=== PATIENT | male | born 1960 | race Caucasian/White ===

== ENCOUNTER 2016-07-31 04:20 | Inpatient (IN) | payer SELFPAY ==
[~2016-07-31] VITALS: Ht 177.8 cm; Wt 81.9 kg
[2016-07-31] MEDS ORDERED: KETOROLAC TROMETH 30 MG/ML 1ML VIAL IV ONE (04:45)
[2016-07-31] MEDS ORDERED: HYDROmorphone HCL 2 MG/ML VL IV ONE (04:45)
[2016-07-31] MEDS ORDERED: ONDANSETRON HCL 4 MG/2 ML VIAL IV ONE (04:45)
[2016-07-31 05:00] LABS: Basophils # (auto) 0 uL; Basophils % (auto) 0.4 % (0.0-2.0); Eosinophils # (auto) 0.2 uL; Eosinophils % (auto) 1.9 % (0.0-7.0); Hematocrit 44.9 % (41.0-53.0); Hemoglobin 15.1 g/dL (13.5-17.5); Lymphocytes # (auto) 1.5 uL; Lymphocytes % (auto) 13.1 % (10.0-50.0); Mean Corpuscular Hemoglobin 29.4 pg (28.0-32.0); Mean Corpuscular Hgb Conc. 33.6 g/dL (32.0-36.0); Mean Corpuscular Volume 87.5 fL (80.0-100.0); Mean Platelet Volume 8.1 fL (7.4-10.4); Monocytes # (auto) 0.8 uL; Monocytes % (auto) 7.1 % (0.0-12.0); Neutrophils # (auto) 8.7 uL; Neutrophils % (auto) 77.5 % (37.0-80.0); Platelet Count (auto) 237 10^3/uL (140-450); Red Cell Distribution Width 13.4 % (11.6-16.0); White Blood Cell 11.2 10^3/uL (4.4-10.8)
[2016-07-31 05:16] LABS: Albumin 3.8 g/dL (3.4-5.0); BUN/Creatinine Ratio 8.2; Bilirubin, Total 0.4 mg/dL (0.2-1.0); Total Protein 7.2 g/dL (6.4-8.2)
[2016-07-31] MEDS ORDERED: SODIUM CHLORIDE 0.9% 1,000 ML IV SCH (06:48)
[2016-07-31] MEDS ORDERED: GASTROGRAFIN 120 ML SOL ONE (06:53)
[2016-07-31] MEDS ORDERED: ONDANSETRON HCL 4 MG/2 ML VIAL IV PRN (07:00)
[2016-07-31] MEDS: MORPHINE SULF INJ 2 MG/ML SYRINGE 1ML IV PRN ×3 (09:33→20:52)
[2016-07-31] MEDS: cefTRIAXone 1GM/50ML D5W 50 ML IV SCH (09:38)
[2016-07-31 10:02] VITALS: BP 123/73
[2016-07-31] MEDS ORDERED: ATOR10TA PO (10:29)
[2016-07-31] MEDS ORDERED: POTA1080 PO (10:29)
[2016-07-31] MEDS ORDERED: ALBUAER3 IN (10:29)
[2016-07-31] MEDS ORDERED: TAM04C PO (10:29)
[2016-07-31 13:00] VITALS: BP 127/91
[2016-07-31] MEDS: SOD CHL IV SCH (14:15)
[2016-07-31] MEDS: SODIUM BICARBONATE IV SCH (14:15)
[2016-07-31] MEDS: KCL IV SCH (14:15)
[2016-07-31 17:00] VITALS: BP 123/81
[2016-07-31 17:09] LABS: Urine Bilirubin Negative (Negative); Urine Color Yellow (Yellow); Urine Glucose Normal (Normal); Urine Ketone Negative (Negative); Urine Mucus FEW (None Seen); Urine Nitrite Negative (Negative); Urine RBC 98 /hpf (0 - 3); Urine Squamous Epithelial Cell FEW /hpf (<5); Urine Urobilinogen Normal (Negative); Urine pH 5.5 (5.0-8.0)
[2016-07-31 17:10] LABS: Urine Blood 2+ /uL (Negative)
[2016-07-31] MEDS: TAMSULOSIN HYDROCHLORIDE 0.4 MG CAP PO SCH (17:53)
[2016-07-31 20:00] VITALS: BP 115/78
[2016-07-31 21:30] VITALS: BP 115/78
[2016-08-01] VITALS (7 sets, daily range): BP systolic 104–115; BP diastolic 55–76
[2016-08-01] MEDS: SODIUM BICARBONATE IV SCH ×2 (03:36→04:55)
[2016-08-01] MEDS: KCL IV SCH ×2 (03:36→04:55)
[2016-08-01] MEDS: SOD CHL IV SCH ×2 (03:36→04:55)
[2016-08-01] MEDS: MORPHINE SULF INJ 2 MG/ML SYRINGE 1ML IV PRN ×3 (03:37→20:33)
[2016-08-01 06:32] LABS: Basophils # (auto) 0.1 uL; Basophils % (auto) 0.5 % (0.0-2.0); Eosinophils # (auto) 0.4 uL; Eosinophils % (auto) 3.9 % (0.0-7.0); Hematocrit 38.3 % (41.0-53.0); Hemoglobin 12.9 g/dL (13.5-17.5); Lymphocytes # (auto) 0.9 uL; Lymphocytes % (auto) 9.6 % (10.0-50.0); Mean Corpuscular Hemoglobin 29.7 pg (28.0-32.0); Mean Corpuscular Hgb Conc. 33.7 g/dL (32.0-36.0); Mean Corpuscular Volume 88.2 fL (80.0-100.0); Mean Platelet Volume 8.1 fL (7.4-10.4); Monocytes # (auto) 0.8 uL; Monocytes % (auto) 8.3 % (0.0-12.0); Neutrophils # (auto) 7.3 uL; Neutrophils % (auto) 77.7 % (37.0-80.0); Platelet Count (auto) 214 10^3/uL (140-450); Red Cell Distribution Width 13.2 % (11.6-16.0); White Blood Cell 9.4 10^3/uL (4.4-10.8)
[2016-08-01 06:54] LABS: Albumin 2.9 g/dL (3.4-5.0); BUN/Creatinine Ratio 7.2; Bilirubin, Total 0.5 mg/dL (0.2-1.0); Calcium 8.3 mg/dL (8.5-10.1); Magnesium 2.2 mg/dL (1.6-2.6); Potassium 4.6 mmol/L (3.5-5.1); Total Protein 5.4 g/dL (6.4-8.2)
[2016-08-01] MEDS ORDERED: SODIUM BICARBONATE 50ML VIAL 100 ML in SOD CHL 0.45% 1,000 ML IV SCH (10:45)
[2016-08-01] MEDS ORDERED: LIDOCAINE 2% JELLY 11ml (GLYDO) ONE (10:50)
[2016-08-01] MEDS ORDERED: fentaNYL CITRATE 100 MCG/2 ML VL ONE (11:13)
[2016-08-01] MEDS ORDERED: MIDAZOLAM HCL 1MG/1ML-2 ML VIAL ONE (11:13)
[2016-08-01] MEDS ORDERED: ceFAZolin 1GM/50ML D5W 100 ML IV ONE (11:14)
[2016-08-01] MEDS ORDERED: PROPOFOL 10 MG/ML 20 ML IV ONE (11:14)
[2016-08-01] MEDS ORDERED: ONDANSETRON HCL 4 MG/2 ML VIAL ONE (11:14)
[2016-08-01 11:33] LABS: INR 0.97 (0.9-1.15); Partial Thromboplastin Time 27.7 sec (22.64-33.71); Prothrombin Time 10.5 sec (9.37-12.3)
[2016-08-01] MEDS: cefTRIAXone 1GM/50ML D5W 50 ML IV SCH (13:23)
[2016-08-01] MEDS: SODIUM BICARBONATE 50ML VIAL 100 ML in SOD CHL 0.45% 1,000 ML IV SCH ×2 (13:24→23:23)
[2016-08-01] MEDS: TAMSULOSIN HYDROCHLORIDE 0.4 MG CAP PO SCH (17:27)
[2016-08-02] MEDS: MORPHINE SULF INJ 2 MG/ML SYRINGE 1ML IV PRN ×3 (03:26→21:46)
[2016-08-02 05:08] VITALS: BP 126/80
[2016-08-02 07:08] LABS: Calcium 8.3 mg/dL (8.5-10.1); Potassium 4.7 mmol/L (3.5-5.1)
[2016-08-02 07:11] LABS: BUN/Creatinine Ratio 7.5
[2016-08-02 09:00] VITALS: BP 114/72
[2016-08-02] MEDS: cefTRIAXone 1GM/50ML D5W 50 ML IV SCH (09:20)
[2016-08-02] MEDS ORDERED: HYDROcodone-ACET 5/325MG TAB PO PRN (12:00)
[2016-08-02 13:00] VITALS: BP 110/74
[2016-08-02 16:59] VITALS: BP 104/63
[2016-08-02 20:00] VITALS: BP 119/75
[2016-08-02] MEDS: TAMSULOSIN HYDROCHLORIDE 0.4 MG CAP PO SCH (20:20)
[2016-08-02] MEDS: SODIUM BICARBONATE 50ML VIAL 100 ML in SOD CHL 0.45% 1,000 ML IV SCH (21:28)
[2016-08-02 21:51] VITALS: BP 119/75
[2016-08-03] MEDS: SODIUM BICARBONATE 50ML VIAL 100 ML in SOD CHL 0.45% 1,000 ML IV SCH (03:15)
[2016-08-03 04:57] VITALS: BP 138/83
[2016-08-03] MEDS: MORPHINE SULF INJ 2 MG/ML SYRINGE 1ML IV PRN (05:26)
[2016-08-03 06:13] LABS: Basophils # (auto) 0 uL; Basophils % (auto) 0.8 % (0.0-2.0); Eosinophils # (auto) 0.6 uL; Eosinophils % (auto) 9.8 % (0.0-7.0); Hematocrit 39.7 % (41.0-53.0); Hemoglobin 13.5 g/dL (13.5-17.5); Lymphocytes # (auto) 1.5 uL; Lymphocytes % (auto) 24.9 % (10.0-50.0); Mean Corpuscular Hgb Conc. 34.1 g/dL (32.0-36.0); Monocytes # (auto) 0.6 uL; Monocytes % (auto) 10.4 % (0.0-12.0); Neutrophils # (auto) 3.2 uL; Neutrophils % (auto) 54.1 % (37.0-80.0); Platelet Count (auto) 212 10^3/uL (140-450); Red Cell Distribution Width 12.7 % (11.6-16.0); White Blood Cell 5.8 10^3/uL (4.4-10.8)
[2016-08-03 06:23] LABS: Calcium 8.4 mg/dL (8.5-10.1); Potassium 4.4 mmol/L (3.5-5.1)
[2016-08-03 07:45] VITALS: BP 127/77
[2016-08-03] MEDS: cefTRIAXone 1GM/50ML D5W 50 ML IV SCH (08:56)
[2016-08-03] MEDS ORDERED: LEVO500T3 PO (11:32)
[2016-08-03 12:07] VITALS: BP 116/72
[2016-08-03 14:19] VITALS: BP 116/72
== END 2016-08-03 16:18 | disposition home or self-care (01) | DRG 694 ==
LOC: ER 04:25 → EAST 04:26
PROVIDERS: ADMIT Internal Medicine; ATTEND Internal Medicine
PROC: 0T778DZ Dilation of Left Ureter with Intraluminal Device, Via Natural or Artificial Opening Endoscopic (ICD-10-PCS; principal; 2016-07-31)
DX: N13.2 Hydronephrosis with renal and ureteral calculous obstruction (principal); K56.60 Unspecified intestinal obstruction; I12.0 Hypertensive chronic kidney disease with stage 5 chronic kidney disease or end stage renal disease; N13.8 Other obstructive and reflux uropathy; D72.829 Elevated white blood cell count, unspecified; N17.0 Acute kidney failure with tubular necrosis; D64.9 Anemia, unspecified; N18.5 Chronic kidney disease, stage 5; N12 Tubulo-interstitial nephritis, not specified as acute or chronic; E78.5 Hyperlipidemia, unspecified; N17.9 Acute kidney failure, unspecified; Z82.49 Family history of ischemic heart disease and other diseases of the circulatory system; Z90.5 Acquired absence of kidney
CPT/HCPCS: 36415; 71010; 74000; 74176; 74250; 76000; 80048; 80053; 80061; 81001; 83735; 85025; 85610; 85730; 87086; 96374; 96375; J0690; J0696; J1885; J2250; J2405; J2704

== ENCOUNTER 2016-10-08 20:07 | Inpatient (IN) | payer SELFPAY ==
[~2016-10-08] VITALS: Ht 177.8 cm; Wt 66.0 kg
[~2016-10-08 20:07] MED LIST: ALBUAER3 IN; ATOR10TA PO; LEVO500T21 PO; POTA1080 PO; TAM04C PO
[2016-10-08] MEDS ORDERED: SODIUM CHLORIDE 0.9% 3,000 ML IV ONE (21:00)
[2016-10-08 21:41] LABS: Basophils # (auto) 0 uL; Basophils % (auto) 0.1 % (0.0-2.0); CONDITION Y; Eosinophils # (auto) 0 uL; Hematocrit 39.1 % (41.0-53.0); Hemoglobin 13.5 g/dL (13.5-17.5); Lymphocytes # (auto) 0.4 uL; Lymphocytes % (auto) 2.5 % (10.0-50.0); Mean Corpuscular Hgb Conc. 34.5 g/dL (32.0-36.0); Mean Platelet Volume 8.7 fL (7.4-10.4); Monocytes # (auto) 1.2 uL; Monocytes % (auto) 7.2 % (0.0-12.0); Neutrophils % (auto) 90.2 % (37.0-80.0); Platelet Count (auto) 226 10^3/uL (140-450); Red Cell Distribution Width 13.3 % (11.6-16.0); SUSPECT Y; White Blood Cell 16.7 10^3/uL (4.4-10.8)
[2016-10-08 22:05] LABS: Alkaline Phosphatase 89 U/L (45-117); Anion Gap 9 (5-15); Aspartate Aminotransferase 18 U/L (15-37); Bilirubin, Total 0.7 mg/dL (0.2-1.0); Blood Urea Nitrogen 25 mg/dL (7-18); Calcium 8.2 mg/dL (8.5-10.1); Carbon Dioxide 26 mmol/L (21-32); Chloride 95 mmol/L (98-107); GFR African American 47 mL/min; GFR Non-African American 39 mL/min; Glucose 127 mg/dL (74-106); Magnesium 1.9 mg/dL (1.6-2.6); Sodium 130 mmol/L (136-145); Total Protein 6.4 g/dL (6.4-8.2)
[2016-10-08 22:08] LABS: INR 0.98 (0.9-1.15); Partial Thromboplastin Time 31.2 sec (22.64-33.71); Prothrombin Time 10.7 sec (9.37-12.3)
[2016-10-08 22:44] LABS: Urine Bilirubin Negative (Negative); Urine Color Yellow (Yellow); Urine Glucose Normal (Normal); Urine Ketone TRACE (Negative); Urine RBC 34 /hpf (0 - 3); Urine Squamous Epithelial Cell FEW /hpf (<5); Urine Urobilinogen Normal (Negative); Urine pH 7.5 (5.0-8.0)
[2016-10-08 22:47] LABS: B-Type Natriuretic Peptide < 5.0 pg/mL (0-100); Temperature: 23.1 C (20.0-25.0)
[2016-10-08 22:49] LABS: Urine Blood 1+ /uL (Negative); Urine Nitrite POSITIVE (Negative)
[2016-10-08] MEDS ORDERED: MORPHINE SULFATE 4 MG/ML SYRG IV ONE (23:00)
[2016-10-08] MEDS ORDERED: PIPERACILLIN-TAZOB 3.375GM 100 ML IV ONE (23:00)
[2016-10-08] MEDS ORDERED: ONDANSETRON HCL 4 MG/2 ML VIAL IV ONE (23:00)
[2016-10-08] MEDS ORDERED: VANCOMYCIN 1GM/250ML D5W 250 ML IV ONE (23:00)
[2016-10-08 23:46] LABS: Fibrinogen 550.8 mg/dL (177-375)
[2016-10-09] MEDS ORDERED: ACETAMINOPHEN 325 MG TAB PO ONE (02:30)
[2016-10-09] MEDS ORDERED: ONDANSETRON HCL 4 MG/2 ML VIAL IV ONE (03:00)
[2016-10-09] MEDS ORDERED: MORPHINE SULFATE 4 MG/ML SYRG IV ONE (03:00)
[2016-10-09] MEDS ORDERED: NITROGLYCERIN 0.4 MG SL TAB SL PRN (04:30)
[2016-10-09] MEDS ORDERED: ONDANSETRON HCL 4 MG/2 ML VIAL IV PRN (04:30)
[2016-10-09] MEDS ORDERED: ACETAMINOPHEN 325 MG TAB PO PRN (04:30)
[2016-10-09] MEDS ORDERED: MORPHINE SULF INJ 2 MG/ML SYRINGE 1ML IV PRN ×2 (04:30)
[2016-10-09] MEDS ORDERED: HYDROmorphone HCL 2 MG/ML VL IV PRN (04:30)
[2016-10-09] MEDS: SODIUM CHLORIDE 0.9% 1,000 ML IV SCH ×2 (04:49→15:50)
[2016-10-09 05:45] VITALS: BP 89/51
[2016-10-09] MEDS: PIPERACILLIN-TAZOB 3.375GM 100 ML IV SCH ×4 (06:18→23:38)
[2016-10-09 09:00] VITALS: BP 68/49
[2016-10-09] MEDS ORDERED: VANCOMYCIN 1GM/250ML D5W 250 ML IV SCH (09:00)
[2016-10-09 09:09] LABS: Albumin 2.5 g/dL (3.4-5.0); Calcium 7.9 mg/dL (8.5-10.1); Potassium 4.5 mmol/L (3.5-5.1)
[2016-10-09 09:11] LABS: BUN/Creatinine Ratio 11.8
[2016-10-09 09:13] LABS: Total Protein 5.8 g/dL (6.4-8.2)
[2016-10-09] MEDS ORDERED: LIDOCAINE HCL 2% TOP JELLY 5ML TOP ONE (09:30)
[2016-10-09] MEDS ORDERED: VANCOMYCIN PER PHARMACY 0 MG IV SCH (10:00)
[2016-10-09] MEDS: PANTOPRAZOLE SODIUM 40 MG/10 ML VIAL IV SCH (10:49)
[2016-10-09] MEDS ORDERED: LIDOCAINE 2% JELLY 11ml (GLYDO) UR ONE (11:45)
[2016-10-09 13:00] VITALS: BP 78/48
[2016-10-09 17:00] VITALS: BP 79/56
[2016-10-09] MEDS ORDERED: SODIUM CHLORIDE 0.9% 1,000 ML IV ONE (17:30)
[2016-10-09] MEDS: HYDROcodone-ACET 5/325MG TAB PO PRN (17:40)
[2016-10-09 21:58] VITALS: BP 86/50
[2016-10-09 22:00] VITALS: BP 79/53
[2016-10-10 00:17] VITALS: BP 92/60
[2016-10-10 05:00] VITALS: BP 92/61
[2016-10-10] MEDS: SODIUM CHLORIDE 0.9% 1,000 ML IV SCH ×3 (05:09→18:42)
[2016-10-10] MEDS: PIPERACILLIN-TAZOB 3.375GM 100 ML IV SCH ×4 (05:10→23:43)
[2016-10-10 06:22] LABS: Basophils # (auto) 0 uL; Basophils % (auto) 0.2 % (0.0-2.0); CONDITION AutoValidated; Eosinophils # (auto) 0 uL; Eosinophils % (auto) 0.4 % (0.0-7.0); Hematocrit 32.3 % (41.0-53.0); Hemoglobin 11.1 g/dL (13.5-17.5); Lymphocytes # (auto) 0.6 uL; Lymphocytes % (auto) 5.2 % (10.0-50.0); Mean Corpuscular Hemoglobin 29.9 pg (28.0-32.0); Mean Corpuscular Hgb Conc. 34.2 g/dL (32.0-36.0); Mean Corpuscular Volume 87.6 fL (80.0-100.0); Mean Platelet Volume 8.7 fL (7.4-10.4); Monocytes # (auto) 0.6 uL; Monocytes % (auto) 4.8 % (0.0-12.0); Neutrophils # (auto) 10.4 uL; Neutrophils % (auto) 89.4 % (37.0-80.0); Platelet Count (auto) 177 10^3/uL (140-450); Red Cell Distribution Width 13.3 % (11.6-16.0); White Blood Cell 11.6 10^3/uL (4.4-10.8)
[2016-10-10 06:43] LABS: Calcium 7.5 mg/dL (8.5-10.1); Potassium 4.5 mmol/L (3.5-5.1)
[2016-10-10 06:46] LABS: Bilirubin, Total 0.6 mg/dL (0.2-1.0); Total Protein 5.4 g/dL (6.4-8.2)
[2016-10-10 09:00] VITALS: BP 90/63
[2016-10-10] MEDS: PANTOPRAZOLE SODIUM 40 MG/10 ML VIAL IV SCH (09:49)
[2016-10-10 13:00] VITALS: BP 106/61
[2016-10-10 17:28] VITALS: BP 101/57
[2016-10-10] MEDS: HYDROcodone-ACET 5/325MG TAB PO PRN (19:17)
[2016-10-10 21:38] VITALS: BP 112/71
[2016-10-11] MEDS: SODIUM CHLORIDE 0.9% 1,000 ML IV SCH ×4 (03:30→23:13)
[2016-10-11 05:00] VITALS: BP 110/69
[2016-10-11] MEDS: PIPERACILLIN-TAZOB 3.375GM 100 ML IV SCH ×2 (05:24→12:06)
[2016-10-11 05:41] LABS: Basophils # (auto) 0 uL; Basophils % (auto) 0.5 % (0.0-2.0); CONDITION AutoValidated; Eosinophils # (auto) 0.2 uL; Eosinophils % (auto) 2.2 % (0.0-7.0); Hematocrit 34.5 % (41.0-53.0); Hemoglobin 11.6 g/dL (13.5-17.5); Lymphocytes # (auto) 0.7 uL; Lymphocytes % (auto) 8.4 % (10.0-50.0); Mean Corpuscular Hemoglobin 29.7 pg (28.0-32.0); Mean Corpuscular Hgb Conc. 33.5 g/dL (32.0-36.0); Mean Corpuscular Volume 88.7 fL (80.0-100.0); Mean Platelet Volume 9.8 fL (7.4-10.4); Monocytes # (auto) 0.7 uL; Monocytes % (auto) 8.6 % (0.0-12.0); Neutrophils # (auto) 6.6 uL; Neutrophils % (auto) 80.3 % (37.0-80.0); Platelet Count (auto) 204 10^3/uL (140-450); Red Cell Distribution Width 14.2 % (11.6-16.0); White Blood Cell 8.2 10^3/uL (4.4-10.8)
[2016-10-11 05:51] LABS: BUN/Creatinine Ratio 10.9; Calcium 7.7 mg/dL (8.5-10.1); Potassium 4.7 mmol/L (3.5-5.1)
[2016-10-11 09:30] VITALS: BP 109/74
[2016-10-11] MEDS: PANTOPRAZOLE SODIUM 40 MG/10 ML VIAL IV SCH (09:39)
[2016-10-11] MEDS ORDERED: cefTRIAXone 1GM/50ML D5W 50 ML IV ONE (12:30)
[2016-10-11 13:03] VITALS: BP 99/72
[2016-10-11 17:01] VITALS: BP 127/77
[2016-10-11 20:00] VITALS: BP 105/64
[2016-10-11 21:54] VITALS: BP 105/64
[2016-10-12 05:42] LABS: Basophils # (auto) 0.1 uL; Basophils % (auto) 0.7 % (0.0-2.0); CONDITION AutoValidated; Eosinophils # (auto) 0.3 uL; Hemoglobin 11.9 g/dL (13.5-17.5); Lymphocytes # (auto) 1.1 uL; Lymphocytes % (auto) 12.9 % (10.0-50.0); Mean Corpuscular Hemoglobin 29.5 pg (28.0-32.0); Mean Corpuscular Hgb Conc. 33.2 g/dL (32.0-36.0); Mean Platelet Volume 8.8 fL (7.4-10.4); Monocytes # (auto) 0.8 uL; Neutrophils % (auto) 72.4 % (37.0-80.0); Platelet Count (auto) 257 10^3/uL (140-450); Red Cell Distribution Width 13.7 % (11.6-16.0); White Blood Cell 8.3 10^3/uL (4.4-10.8)
[2016-10-12 05:52] VITALS: BP 114/69
[2016-10-12 05:58] LABS: Calcium 8.4 mg/dL (8.5-10.1); Potassium 4.6 mmol/L (3.5-5.1)
[2016-10-12 06:01] LABS: BUN/Creatinine Ratio 11.1
[2016-10-12] MEDS ORDERED: CIPR-173 PO (09:00)
[2016-10-12] MEDS ORDERED: cefTRIAXone 1GM/50ML D5W 50 ML IV SCH (09:00)
[2016-10-12] MEDS ORDERED: AMOX-263 PO (09:02)
[2016-10-12 09:12] VITALS: BP 114/74
[2016-10-12] MEDS: PANTOPRAZOLE SODIUM 40 MG/10 ML VIAL IV SCH (09:33)
[2016-10-12] MEDS: SODIUM CHLORIDE 0.9% 1,000 ML IV SCH (09:33)
[2016-10-12 13:36] VITALS: BP 125/80
[2016-10-12 15:36] VITALS: BP 125/80
== END 2016-10-12 16:27 | disposition home or self-care (01) | DRG 698 ==
LOC: ER 20:19 → TELE 20:21 → TELE-CENTR 10-09 05:45 → CENTRAL 10-11 12:39
PROVIDERS: ADMIT Internal Medicine; ATTEND Internal Medicine
DX: T83.122A Displacement of indwelling ureteral stent, initial encounter (principal); A41.3 Sepsis due to Hemophilus influenzae; J98.11 Atelectasis; E44.0 Moderate protein-calorie malnutrition; N17.9 Acute kidney failure, unspecified; E87.1 Hypo-osmolality and hyponatremia; N13.6 Pyonephrosis; N39.0 Urinary tract infection, site not specified; E11.22 Type 2 diabetes mellitus with diabetic chronic kidney disease; N18.3 Chronic kidney disease, stage 3 (moderate); E86.0 Dehydration; Z82.49 Family history of ischemic heart disease and other diseases of the circulatory system; Z87.442 Personal history of urinary calculi; Z68.20 Body mass index [BMI] 20.0-20.9, adult
CPT/HCPCS: 36415; 71010; 74176; 80048; 80053; 80202; 81001; 82553; 82962; 83605; 83735; 83874; 83880; 84484; 85025; 85384; 85610; 85730; 87040; 87077; 87086; 93005; 96361; 96365; 96367; 96375; 96376; C9113; J0696; J2405; J2543

== ENCOUNTER 2017-06-11 20:10 | Inpatient (IN) | payer MEDICAID ==
[~2017-06-11] VITALS: Ht 182.9 cm; Wt 80.5 kg
[~2017-06-11 20:10] MED LIST changes: +AMOX-263 PO; +CIPR-173 PO; -LEVO500T21 PO; -POTA1080 PO
[2017-06-11] MEDS ORDERED: ONDANSETRON HCL 4 MG/2 ML VIAL IV ONE (20:45)
[2017-06-11] MEDS ORDERED: MORPHINE SULFATE 4 MG/ML SYR/VIAL IV ONE (20:45)
[2017-06-11 20:57] LABS: Basophils # (auto) 0.1 uL; Basophils % (auto) 0.9 % (0.0-2.0); Eosinophils # (auto) 0 uL; Eosinophils % (auto) 0.3 % (0.0-7.0); Hematocrit 44.6 % (41.0-53.0); Lymphocytes # (auto) 0.8 uL; Lymphocytes % (auto) 5.9 % (10.0-50.0); Mean Corpuscular Hemoglobin 29.4 pg (28.0-32.0); Mean Corpuscular Hgb Conc. 33.6 g/dL (32.0-36.0); Mean Corpuscular Volume 87.5 fL (80.0-100.0); Monocytes # (auto) 1.1 uL; Monocytes % (auto) 8.6 % (0.0-12.0); Neutrophils # (auto) 10.8 uL; Neutrophils % (auto) 84.3 % (37.0-80.0); Nucleated Red Blood Cells % 0.4 %; Platelet Count (auto) 224 10^3/uL (140-450); Red Blood Cells 5.09 10^6/uL (4.5-5.90); Red Cell Distribution Width 13.6 % (11.8-14.3); White Blood Cell 12.8 10^3/uL (4.4-10.8)
[2017-06-11 21:02] LABS: Urine Bacteria FEW /hpf (None Seen); Urine Blood 2+ /uL (Negative); Urine Mucus FEW (None Seen); Urine Specific Gravity 1.014 (1.001-1.035); Urine WBC 532 /hpf (0 - 3); Urine WBC Clumps PRESENT /hpf (None Seen)
[2017-06-11 21:14] LABS: Albumin 3.5 g/dL (3.4-5.0); BUN/Creatinine Ratio 14.8; Potassium 4.4 mmol/L (3.5-5.1)
[2017-06-11 21:16] LABS: Bilirubin, Total 0.5 mg/dL (0.2-1.0); Total Protein 7.7 g/dL (6.4-8.2)
[2017-06-11] MEDS ORDERED: cefTRIAXone 1GM/10ml IVPUSH 10 ML IV ONE (21:45)
[2017-06-11] MEDS ORDERED: TAMSULOSIN HYDROCHLORIDE 0.4 MG CAP PO ONE (22:00)
[2017-06-11] MEDS ORDERED: SODIUM CHLORIDE 0.9% 500 ML IV ONE (22:00)
[2017-06-11] MEDS ORDERED: ONDANSETRON HCL 4 MG/2 ML VIAL IV PRN (22:00)
[2017-06-11] MEDS: SODIUM CHLORIDE 0.9% 1,000 ML IV SCH (22:40)
[2017-06-11] MEDS: FAMOTIDINE 20 MG TAB PO SCH (22:40)
[2017-06-11] MEDS: MORPHINE SULFATE 4 MG/ML SYR/VIAL IV PRN (22:46)
[2017-06-11 23:05] VITALS: BP 121/74
[2017-06-12] VITALS (8 sets, daily range): BP systolic 88–130; BP diastolic 55–92
[2017-06-12] MEDS: ACETAMINOPHEN 325 MG TAB PO PRN ×3 (00:06→18:36)
[2017-06-12] MEDS: HYDROcodone-ACET 5/325MG TAB PO PRN ×4 (02:00→22:53)
[2017-06-12 06:12] LABS: Basophils # (auto) 0.1 uL; Basophils % (auto) 0.5 % (0.0-2.0); Eosinophils # (auto) 0 uL; Eosinophils % (auto) 0.3 % (0.0-7.0); Hematocrit 39.8 % (41.0-53.0); Hemoglobin 13.5 g/dL (13.5-17.5); Lymphocytes # (auto) 0.6 uL; Lymphocytes % (auto) 5.1 % (10.0-50.0); Mean Corpuscular Hemoglobin 29.7 pg (28.0-32.0); Mean Corpuscular Volume 87.3 fL (80.0-100.0); Monocytes # (auto) 1.1 uL; Monocytes % (auto) 9.8 % (0.0-12.0); Neutrophils # (auto) 9.3 uL; Neutrophils % (auto) 84.3 % (37.0-80.0); Nucleated Red Blood Cells % 0.1 %; Platelet Count (auto) 176 10^3/uL (140-450); Red Blood Cells 4.56 10^6/uL (4.5-5.90); Red Cell Distribution Width 13.5 % (11.8-14.3)
[2017-06-12 06:33] LABS: Calcium 7.9 mg/dL (8.5-10.1); Potassium 3.9 mmol/L (3.5-5.1)
[2017-06-12 06:36] LABS: BUN/Creatinine Ratio 14.4
[2017-06-12 06:38] LABS: Bilirubin, Total 0.4 mg/dL (0.2-1.0); Total Protein 6.6 g/dL (6.4-8.2)
[2017-06-12] MEDS: MORPHINE SULFATE 4 MG/ML SYR/VIAL IV PRN ×2 (07:32→20:05)
[2017-06-12] MEDS ORDERED: cefTRIAXone 1GM/10ml IVPUSH 10 ML IV SCH (09:00)
[2017-06-12 09:01] LABS: INR 0.93 (0.9-1.15); Partial Thromboplastin Time 32.1 sec (22.64-33.71); Prothrombin Time 10.1 sec (9.37-12.3)
[2017-06-12] MEDS: FAMOTIDINE 20 MG TAB PO SCH ×2 (09:45→22:10)
[2017-06-12] MEDS ORDERED: LEVOFLOXACIN 500MG 100 ML IV SCH (10:00)
[2017-06-12] MEDS ORDERED: TIOP100T PO (10:01)
[2017-06-12] MEDS ORDERED: KETOROLAC TROMETH 30 MG/ML 1ML VIAL IV ONE (10:30)
[2017-06-12] MEDS: SODIUM CHLORIDE 0.9% 1,000 ML IV SCH ×2 (11:33→20:00)
[2017-06-12] MEDS ORDERED: IODIXANOL 320MG/ML 100ML BTL IV ONE (12:23)
[2017-06-12] MEDS ORDERED: LIDOCAINE 2%HCL (LOCAL ANESTH.) INJ 20ML MDV ONE ×3 (12:23→13:27)
[2017-06-12] MEDS ORDERED: MIDAZOLAM HCL 1MG/1ML-2 ML VIAL ONE (12:57)
[2017-06-12] MEDS ORDERED: fentaNYL CITRATE 100 MCG/2 ML VL ONE (12:59)
[2017-06-12] MEDS ORDERED: SODIUM CHLORIDE 0.9% 1,000 ML IV SCH (14:15)
[2017-06-12] MEDS ORDERED: MEPERIDINE HCL (25 MG/ML) 1ML VIAL IM ONE (15:15)
[2017-06-12] MEDS ORDERED: MEPERIDINE HCL (25 MG/ML) 1ML VIAL ONE (15:19)
[2017-06-12] MEDS ORDERED: SODIUM CHLORIDE 0.9% 1,000 ML IV ONE (18:15)
[2017-06-12] MEDS: LINEZOLID 600MG/300ML 300 ML IV SCH ×2 (18:15→22:00)
[2017-06-12] MEDS ORDERED: PIPERACILLIN-TAZOB 2.25GM 50 ML IV ONE (18:15)
[2017-06-12 20:35] LABS: Basophils # (auto) 0.1 uL; Basophils % (auto) 0.6 % (0.0-2.0); Eosinophils # (auto) 0 uL; Hematocrit 37.2 % (41.0-53.0); Hemoglobin 12.5 g/dL (13.5-17.5); Lymphocytes # (auto) 0.1 uL; Mean Corpuscular Hemoglobin 29.3 pg (28.0-32.0); Mean Corpuscular Hgb Conc. 33.7 g/dL (32.0-36.0); Monocytes # (auto) 0.6 uL; Neutrophils % (auto) 93.4 % (37.0-80.0); Red Blood Cells 4.28 10^6/uL (4.5-5.90); Red Cell Distribution Width 13.4 % (11.8-14.3); White Blood Cell 12.8 10^3/uL (4.4-10.8)
[2017-06-12 20:40] LABS: Platelet Count (auto) 139 10^3/uL (140-450)
[2017-06-12] MEDS ORDERED: SODIUM CHLORIDE 0.9% 500 ML IV ONE (23:00)
[2017-06-13] VITALS: BP 90/62
[2017-06-13] MEDS ORDERED: PIPERACILLIN-TAZOB 2.25GM 50 ML IV SCH
[2017-06-13] MEDS: SODIUM CHLORIDE 0.9% 1,000 ML IV SCH ×3 (00:55→14:21)
[2017-06-13 01:27] LABS: Hematocrit 36.2 % (41.0-53.0); Hemoglobin 12.2 g/dL (13.5-17.5)
[2017-06-13 05:14] LABS: Basophils # (auto) 0 uL; Basophils % (auto) 0.2 % (0.0-2.0); Eosinophils # (auto) 0 uL; Eosinophils % (auto) 0.2 % (0.0-7.0); Hematocrit 34.1 % (41.0-53.0); Hemoglobin 11.5 g/dL (13.5-17.5); Lymphocytes # (auto) 0.2 uL; Lymphocytes % (auto) 1.5 % (10.0-50.0); Mean Corpuscular Hemoglobin 29.8 pg (28.0-32.0); Mean Corpuscular Hgb Conc. 33.9 g/dL (32.0-36.0); Mean Corpuscular Volume 88.1 fL (80.0-100.0); Monocytes # (auto) 0.7 uL; Monocytes % (auto) 4.4 % (0.0-12.0); Neutrophils % (auto) 93.7 % (37.0-80.0); Platelet Count (auto) 146 10^3/uL (140-450); Red Blood Cells 3.87 10^6/uL (4.5-5.90); Red Cell Distribution Width 13.4 % (11.8-14.3)
[2017-06-13 05:32] LABS: BUN/Creatinine Ratio 12.7; Calcium 7.2 mg/dL (8.5-10.1); Potassium 4.9 mmol/L (3.5-5.1)
[2017-06-13 06:14] VITALS: BP 103/62
[2017-06-13 08:00] VITALS: BP 135/73
[2017-06-13] MEDS: HYDROcodone-ACET 5/325MG TAB PO PRN ×2 (08:59→21:05)
[2017-06-13] MEDS ORDERED: TAMSULOSIN HYDROCHLORIDE 0.4 MG CAP PO ONE (11:00)
[2017-06-13] MEDS ORDERED: SODIUM CHLORIDE 0.9% 500 ML IV ONE (11:00)
[2017-06-13] MEDS ORDERED: cefTRIAXone 1GM/10ml IVPUSH 10 ML IV ONE (11:00)
[2017-06-13] MEDS: FAMOTIDINE 20 MG TAB PO SCH ×2 (11:37→22:21)
[2017-06-13] MEDS: LINEZOLID 600MG/300ML 300 ML IV SCH ×2 (11:37→22:20)
[2017-06-13 11:51] VITALS: BP 108/56
[2017-06-13] MEDS: ACETAMINOPHEN 325 MG TAB PO PRN (12:05)
[2017-06-13] MEDS: MORPHINE SULFATE 4 MG/ML SYR/VIAL IV PRN ×2 (13:12→22:25)
[2017-06-13 15:50] VITALS: BP 122/50
[2017-06-13] MEDS: TAMSULOSIN HYDROCHLORIDE 0.4 MG CAP PO SCH (18:20)
[2017-06-13 19:50] VITALS: BP 99/66
[2017-06-14] VITALS (7 sets, daily range): BP systolic 104–120; BP diastolic 63–77
[2017-06-14] MEDS: ACETAMINOPHEN 325 MG TAB PO PRN (00:08)
[2017-06-14] MEDS: SODIUM CHLORIDE 0.9% 1,000 ML IV SCH ×4 (01:00→17:17)
[2017-06-14 05:31] LABS: Basophils # (auto) 0 uL; Basophils % (auto) 0.5 % (0.0-2.0); Eosinophils # (auto) 0.1 uL; Hematocrit 33.6 % (41.0-53.0); Hemoglobin 11.6 g/dL (13.5-17.5); Lymphocytes # (auto) 0.4 uL; Lymphocytes % (auto) 5.5 % (10.0-50.0); Mean Corpuscular Hemoglobin 30.4 pg (28.0-32.0); Mean Corpuscular Hgb Conc. 34.6 g/dL (32.0-36.0); Mean Corpuscular Volume 87.8 fL (80.0-100.0); Monocytes # (auto) 0.6 uL; Monocytes % (auto) 8.4 % (0.0-12.0); Neutrophils # (auto) 6.2 uL; Neutrophils % (auto) 83.6 % (37.0-80.0); Nucleated Red Blood Cells % 0.1 %; Platelet Count (auto) 145 10^3/uL (140-450); Red Blood Cells 3.82 10^6/uL (4.5-5.90); Red Cell Distribution Width 13.2 % (11.8-14.3); White Blood Cell 7.4 10^3/uL (4.4-10.8)
[2017-06-14 05:47] LABS: Albumin 2.1 g/dL (3.4-5.0); BUN/Creatinine Ratio 10.7; Bilirubin, Total 0.4 mg/dL (0.2-1.0); Calcium 7.5 mg/dL (8.5-10.1); Potassium 4.3 mmol/L (3.5-5.1); Total Protein 5.9 g/dL (6.4-8.2)
[2017-06-14] MEDS: cefTRIAXone 1GM/10ml IVPUSH 10 ML IV SCH (09:29)
[2017-06-14] MEDS: FAMOTIDINE 20 MG TAB PO SCH ×2 (09:29→21:20)
[2017-06-14] MEDS: LINEZOLID 600MG/300ML 300 ML IV SCH ×2 (09:29→21:20)
[2017-06-14] MEDS: MORPHINE SULFATE 4 MG/ML SYR/VIAL IV PRN ×2 (12:51→19:54)
[2017-06-14] MEDS: TAMSULOSIN HYDROCHLORIDE 0.4 MG CAP PO SCH (18:10)
[2017-06-14] MEDS: HYDROcodone-ACET 5/325MG TAB PO PRN (18:10)
[2017-06-14] MEDS: TEMAZEPAM 15 MG CAP PO PRN (23:11)
[2017-06-15] MEDS: SODIUM CHLORIDE 0.9% 1,000 ML IV SCH ×4 (02:33→16:58)
[2017-06-15 05:15] VITALS: BP 122/79
[2017-06-15 06:47] LABS: Basophils # (auto) 0.1 uL; Basophils % (auto) 0.8 % (0.0-2.0); Eosinophils # (auto) 0.3 uL; Eosinophils % (auto) 4.8 % (0.0-7.0); Hematocrit 36.2 % (41.0-53.0); Hemoglobin 12.3 g/dL (13.5-17.5); Lymphocytes # (auto) 0.6 uL; Mean Corpuscular Hemoglobin 29.5 pg (28.0-32.0); Mean Corpuscular Volume 86.8 fL (80.0-100.0); Monocytes # (auto) 0.7 uL; Monocytes % (auto) 10.8 % (0.0-12.0); Neutrophils % (auto) 74.6 % (37.0-80.0); Platelet Count (auto) 189 10^3/uL (140-450); Red Blood Cells 4.17 10^6/uL (4.5-5.90); Red Cell Distribution Width 13.4 % (11.8-14.3); White Blood Cell 6.7 10^3/uL (4.4-10.8)
[2017-06-15] MEDS: cefTRIAXone 1GM/10ml IVPUSH 10 ML IV SCH (08:43)
[2017-06-15] MEDS: LINEZOLID 600MG/300ML 300 ML IV SCH ×2 (08:43→21:23)
[2017-06-15] MEDS: FAMOTIDINE 20 MG TAB PO SCH ×2 (08:44→21:23)
[2017-06-15] MEDS: MORPHINE SULFATE 4 MG/ML SYR/VIAL IV PRN ×2 (08:46→21:44)
[2017-06-15 09:00] VITALS: BP 117/85
[2017-06-15 13:00] VITALS: BP 107/57
[2017-06-15 17:00] VITALS: BP 108/65
[2017-06-15] MEDS: TAMSULOSIN HYDROCHLORIDE 0.4 MG CAP PO SCH (17:49)
[2017-06-15 21:56] VITALS: BP 129/77
[2017-06-16] MEDS: SODIUM CHLORIDE 0.9% 1,000 ML IV SCH ×4 (02:15→21:55)
[2017-06-16 05:00] VITALS: BP 126/77
[2017-06-16] MEDS: MORPHINE SULFATE 4 MG/ML SYR/VIAL IV PRN ×3 (05:43→21:55)
[2017-06-16] MEDS: ACETAMINOPHEN 325 MG TAB PO PRN (06:27)
[2017-06-16 07:12] LABS: Basophils # (auto) 0 uL; Basophils % (auto) 0.8 % (0.0-2.0); Eosinophils # (auto) 0.3 uL; Eosinophils % (auto) 6.1 % (0.0-7.0); Hematocrit 36.4 % (41.0-53.0); Hemoglobin 12.3 g/dL (13.5-17.5); Lymphocytes # (auto) 0.8 uL; Lymphocytes % (auto) 15.7 % (10.0-50.0); Mean Corpuscular Hemoglobin 29.4 pg (28.0-32.0); Mean Corpuscular Hgb Conc. 33.9 g/dL (32.0-36.0); Mean Corpuscular Volume 86.8 fL (80.0-100.0); Monocytes # (auto) 0.6 uL; Monocytes % (auto) 11.2 % (0.0-12.0); Neutrophils # (auto) 3.5 uL; Neutrophils % (auto) 66.2 % (37.0-80.0); Platelet Count (auto) 223 10^3/uL (140-450); Red Blood Cells 4.19 10^6/uL (4.5-5.90); Red Cell Distribution Width 13.8 % (11.8-14.3)
[2017-06-16 07:23] LABS: INR 0.93 (0.9-1.15); Partial Thromboplastin Time 31.3 sec (22.64-33.71); Prothrombin Time 10.1 sec (9.37-12.3)
[2017-06-16 07:24] LABS: Calcium 8.3 mg/dL (8.5-10.1); Potassium 4.3 mmol/L (3.5-5.1)
[2017-06-16 07:27] LABS: Albumin 2.3 g/dL (3.4-5.0); White Blood Cell 5.3 10^3/uL (4.4-10.8)
[2017-06-16] MEDS: HYDROcodone-ACET 5/325MG TAB PO PRN ×3 (07:33→17:00)
[2017-06-16 07:47] LABS: BUN/Creatinine Ratio 13.5; Bilirubin, Total 0.3 mg/dL (0.2-1.0); Total Protein 6.5 g/dL (6.4-8.2)
[2017-06-16 08:44] VITALS: BP 121/74
[2017-06-16] MEDS: cefTRIAXone 1GM/10ml IVPUSH 10 ML IV SCH (09:37)
[2017-06-16] MEDS: LINEZOLID 600MG/300ML 300 ML IV SCH ×2 (09:37→21:54)
[2017-06-16 12:33] VITALS: BP 126/81
[2017-06-16] MEDS ORDERED: IOHEXOL 300 MG/ML 100ML BOTTLE IJ ONE (12:43)
[2017-06-16] MEDS ORDERED: ONDANSETRON HCL 4 MG/2 ML VIAL ONE (12:44)
[2017-06-16] MEDS ORDERED: PROPOFOL 10 MG/ML 20 ML IV ONE (12:44)
[2017-06-16] MEDS ORDERED: SODIUM CHLORIDE LOCK 10 ML ONE (12:44)
[2017-06-16] MEDS ORDERED: fentaNYL CITRATE 100 MCG/2 ML VL ONE (12:44)
[2017-06-16] MEDS ORDERED: MIDAZOLAM HCL 1MG/1ML-2 ML VIAL ONE (12:44)
[2017-06-16] MEDS ORDERED: METOCLOPRAMIDE HCL 5MG/ml INJ 2ml VIAL IV ONE (12:45)
[2017-06-16] MEDS ORDERED: ROCURONIUM 10MG/ML 10ML VIAL IV ONE (13:07)
[2017-06-16] MEDS ORDERED: SUCCINYLCHOLINE CHLORIDE 20 MG/ML 10ML VIAL IV ONE (13:07)
[2017-06-16] MEDS ORDERED: MORPHINE SULFATE 4 MG/ML SYR/VIAL IV ONE (14:00)
[2017-06-16] MEDS: FAMOTIDINE 20 MG TAB PO SCH ×2 (16:50→21:54)
[2017-06-16 17:07] VITALS: BP 120/80
[2017-06-16] MEDS: TAMSULOSIN HYDROCHLORIDE 0.4 MG CAP PO SCH (18:02)
[2017-06-16] MEDS: TEMAZEPAM 15 MG CAP PO PRN (21:54)
[2017-06-16 22:00] VITALS: BP 116/73
[2017-06-17 05:51] VITALS: BP 117/61
[2017-06-17] MEDS: SODIUM CHLORIDE 0.9% 1,000 ML IV SCH ×4 (05:52→21:44)
[2017-06-17 06:26] LABS: Basophils # (auto) 0 uL; Basophils % (auto) 0.4 % (0.0-2.0); Eosinophils # (auto) 0.4 uL; Eosinophils % (auto) 3.5 % (0.0-7.0); Hemoglobin 12.2 g/dL (13.5-17.5); Lymphocytes # (auto) 0.9 uL; Lymphocytes % (auto) 8.2 % (10.0-50.0); Mean Corpuscular Hemoglobin 29.4 pg (28.0-32.0); Mean Corpuscular Hgb Conc. 33.8 g/dL (32.0-36.0); Mean Corpuscular Volume 87.1 fL (80.0-100.0); Monocytes # (auto) 1.1 uL; Monocytes % (auto) 10.4 % (0.0-12.0); Neutrophils # (auto) 8.2 uL; Neutrophils % (auto) 77.5 % (37.0-80.0); Platelet Count (auto) 265 10^3/uL (140-450); Red Blood Cells 4.14 10^6/uL (4.5-5.90); Red Cell Distribution Width 13.8 % (11.8-14.3); White Blood Cell 10.6 10^3/uL (4.4-10.8)
[2017-06-17 06:44] LABS: Potassium 4.7 mmol/L (3.5-5.1)
[2017-06-17 06:48] LABS: BUN/Creatinine Ratio 13.7; Calcium 8.2 mg/dL (8.5-10.1)
[2017-06-17 09:00] VITALS: BP 122/62
[2017-06-17] MEDS: HYDROcodone-ACET 5/325MG TAB PO PRN ×2 (09:26→21:43)
[2017-06-17] MEDS: FAMOTIDINE 20 MG TAB PO SCH ×2 (09:26→21:43)
[2017-06-17] MEDS: cefTRIAXone 1GM/10ml IVPUSH 10 ML IV SCH (09:27)
[2017-06-17] MEDS: LINEZOLID 600MG/300ML 300 ML IV SCH (09:29)
[2017-06-17] MEDS ORDERED: LEVOFLOXACIN 500MG 100 ML IV ONE (11:00)
[2017-06-17 17:00] VITALS: BP 117/79
[2017-06-17] MEDS: TAMSULOSIN HYDROCHLORIDE 0.4 MG CAP PO SCH (17:29)
[2017-06-17] MEDS: TEMAZEPAM 15 MG CAP PO PRN (21:43)
[2017-06-17 22:00] VITALS: BP 120/76
[2017-06-18 05:53] VITALS: BP 135/72
[2017-06-18 08:07] LABS: Basophils # (auto) 0.1 uL; Basophils % (auto) 0.7 % (0.0-2.0); Eosinophils # (auto) 0.5 uL; Hematocrit 38.1 % (41.0-53.0); Hemoglobin 12.9 g/dL (13.5-17.5); Lymphocytes # (auto) 1.2 uL; Lymphocytes % (auto) 13.1 % (10.0-50.0); Mean Corpuscular Hemoglobin 29.3 pg (28.0-32.0); Mean Corpuscular Hgb Conc. 33.8 g/dL (32.0-36.0); Mean Corpuscular Volume 86.6 fL (80.0-100.0); Monocytes # (auto) 1.1 uL; Monocytes % (auto) 11.6 % (0.0-12.0); Neutrophils # (auto) 6.4 uL; Neutrophils % (auto) 69.6 % (37.0-80.0); Platelet Count (auto) 308 10^3/uL (140-450); Red Cell Distribution Width 13.4 % (11.8-14.3); White Blood Cell 9.1 10^3/uL (4.4-10.8)
[2017-06-18 08:28] LABS: Alanine Aminotransferase 117 U/L (16-61); Albumin 2.4 g/dL (3.4-5.0); Alkaline Phosphatase 247 U/L (45-117); Anion Gap 10 (5-15); Aspartate Aminotransferase 89 U/L (15-37); Bilirubin, Direct < 0.1 mg/dL (0-0.2); Bilirubin, Total 0.3 mg/dL (0.2-1.0); Blood Urea Nitrogen 23 mg/dL (7-18); Calcium 8.9 mg/dL (8.5-10.1); Carbon Dioxide 28 mmol/L (21-32); Chloride 102 mmol/L (98-107); GFR African American 61 mL/min; GFR Non-African American 50 mL/min; Glucose 85 mg/dL (74-106); Magnesium 2.5 mg/dL (1.6-2.6); Potassium 4.3 mmol/L (3.5-5.1); Sodium 140 mmol/L (136-145); Total Protein 7.4 g/dL (6.4-8.2)
[2017-06-18 09:00] VITALS: BP 130/78
[2017-06-18] MEDS: SODIUM CHLORIDE 0.9% 1,000 ML IV SCH ×2 (09:22→18:18)
[2017-06-18] MEDS: LEVOFLOXACIN 500MG 100 ML IV SCH (09:24)
[2017-06-18] MEDS: FAMOTIDINE 20 MG TAB PO SCH ×2 (09:25→21:23)
[2017-06-18] MEDS ORDERED: LEVO500T21 PO (10:41)
[2017-06-18] MEDS ORDERED: SACC250C PO (10:59)
[2017-06-18] MEDS ORDERED: HYDR-4683 PO (10:59)
[2017-06-18] MEDS ORDERED: DOCU-94 PO (10:59)
[2017-06-18] MEDS ORDERED: LACTULOSE 20Gm/30ML SOLN PO ONE (11:00)
[2017-06-18] MEDS ORDERED: BISACODYL 10 MG RECT SUPP PR ONE (11:00)
[2017-06-18 13:00] VITALS: BP 112/77
[2017-06-18 17:00] VITALS: BP 118/82
[2017-06-18] MEDS: TAMSULOSIN HYDROCHLORIDE 0.4 MG CAP PO SCH (18:18)
[2017-06-18] MEDS: ACETAMINOPHEN 325 MG TAB PO PRN (18:32)
[2017-06-18] MEDS: TEMAZEPAM 15 MG CAP PO PRN (21:23)
[2017-06-18] MEDS: DOCUSATE SOD 100 MG CAP PO SCH (21:23)
[2017-06-18 22:00] VITALS: BP 110/65
[2017-06-19] MEDS: SODIUM CHLORIDE 0.9% 1,000 ML IV SCH ×3 (04:40→17:15)
[2017-06-19 05:00] VITALS: BP 141/71
[2017-06-19 06:45] LABS: BUN/Creatinine Ratio 15.6; Calcium 8.7 mg/dL (8.5-10.1); Potassium 4.5 mmol/L (3.5-5.1)
[2017-06-19 06:49] LABS: Alanine Aminotransferase 120 U/L (16-61); Albumin 2.3 g/dL (3.4-5.0); Alkaline Phosphatase 236 U/L (45-117); Aspartate Aminotransferase 77 U/L (15-37); Bilirubin, Direct < 0.1 mg/dL (0-0.2); Bilirubin, Total 0.2 mg/dL (0.2-1.0); Total Protein 7.1 g/dL (6.4-8.2)
[2017-06-19 08:39] VITALS: BP 141/71
[2017-06-19 09:00] VITALS: BP 138/87
[2017-06-19] MEDS: DOCUSATE SOD 100 MG CAP PO SCH (09:20)
[2017-06-19] MEDS: FAMOTIDINE 20 MG TAB PO SCH (09:20)
[2017-06-19] MEDS: LEVOFLOXACIN 500MG 100 ML IV SCH (09:20)
[2017-06-19] MEDS ORDERED: LEVOFLOXACIN 250 MG TAB PO ONE ×2 (10:00→10:15)
[2017-06-19 13:00] VITALS: BP 108/74
[2017-06-19 17:10] VITALS: BP 120/83
[2017-06-19] MEDS: TAMSULOSIN HYDROCHLORIDE 0.4 MG CAP PO SCH (18:00)
== END 2017-06-19 18:25 | disposition home or self-care (01) | DRG 710 ==
LOC: EDBD 20:10 → ER 20:14 → TELE 20:15 → TELE-WESTW 23:05 → DOU IN ICU 06-12 21:45 → TELE-EAST 06-14 20:45
PROVIDERS: ADMIT Nurse Practitioner; ATTEND Internal Medicine
PROC: 0T913ZZ Drainage of Left Kidney, Percutaneous Approach (ICD-10-PCS; principal; 2017-06-12)
PROC: 0TC78ZZ Extirpation of Matter from Left Ureter, Via Natural or Artificial Opening Endoscopic (ICD-10-PCS; 2017-06-16)
PROC: 0T778DZ Dilation of Left Ureter with Intraluminal Device, Via Natural or Artificial Opening Endoscopic (ICD-10-PCS; 2017-06-16)
PROC: 0TP98DZ Removal of Intraluminal Device from Ureter, Via Natural or Artificial Opening Endoscopic (ICD-10-PCS; 2017-06-16)
DX: A41.01 Sepsis due to Methicillin susceptible Staphylococcus aureus (principal); N17.9 Acute kidney failure, unspecified; E44.0 Moderate protein-calorie malnutrition; N13.2 Hydronephrosis with renal and ureteral calculous obstruction; Z96.0 Presence of urogenital implants; G47.00 Insomnia, unspecified; R79.89 Other specified abnormal findings of blood chemistry; N18.9 Chronic kidney disease, unspecified; N12 Tubulo-interstitial nephritis, not specified as acute or chronic; R65.20 Severe sepsis without septic shock; E86.0 Dehydration; K59.00 Constipation, unspecified; Z82.49 Family history of ischemic heart disease and other diseases of the circulatory system; Z93.6 Other artificial openings of urinary tract status; Z90.5 Acquired absence of kidney; Z79.899 Other long term (current) drug therapy; Z68.24 Body mass index [BMI] 24.0-24.9, adult; Z71.89 Other specified counseling
CPT/HCPCS: 36415; 50432; 71045; 74018; 74176; 76000; 76705; 76942; 80048; 80053; 80076; 81001; 83605; 83735; 84484; 85014; 85018; 85025; 85610; 85652; 85730; 87040; 87077; 87081; 87086; 87088; 87147; 87186; 93005; 93306; 96361; 96374; 96375; 99152; C1729; J0330; J1885; J1956; J2250; J2405; J2543; J2704; Q9967